=== PATIENT | female | born 1995 | race African-American/Black ===

== ENCOUNTER 2020-06-09 10:31 | Emergency (ER) | payer OTHER, SELFPAY ==
[~2020-06-09] VITALS: Ht 160 cm; Wt 68.0 kg
[2020-06-09 10:32] VITALS: Ht 160 cm; Wt 68.0 kg
[2020-06-09 13:00] VITALS: BP 136/64
== END 2020-06-09 13:00 | disposition home or self-care (01) ==
LOC: ED 10:31
DX: R42 Dizziness and giddiness (principal); R11.2 Nausea with vomiting, unspecified
CPT/HCPCS: 82962; J8597; Q0162